=== PATIENT | female | born 1990 | race Caucasian/White ===

== ENCOUNTER 2016-04-17 16:01 | Emergency (ER) | payer OTHER ==
[~2016-04-17] VITALS: Ht 152.4 cm; Wt 63.2 kg
[~2016-04-17 16:01] MED LIST: ENDOCET 5-3251 EACH PO; FLINTSTONES M100 MCG PO; IBUPROFEN800 MG PO; MOTRIN800 MG PO; NOHOMEMEDS; PRENATAL TABLE1 EAC3 PO; SUBUTEX PO
[2016-04-17 17:29] LABS: EOSINOPHIL (%) 0.6 % (0-5); HEMATOCRIT 35.6 % (36.0-46.0); IMMATURE GRANULOCYTE (%) 0.2 % (0.0-0.7); IMMATURE GRANULOCYTE COUNT 0.1 K/uL; LYMPHOCYTE COUNT 1.5 K/uL (1.0-2.8); MCH 30.2 PG (29.0-34.0); MCHC 34.6 G/DL (30.0-36.0); MCV 87.5 FL (83-99); MEAN PLAT.VOLUME 9.7 uM^3 (9.5-12.4); MONOCYTE (%) 12.9 % (3-12); MONOCYTE COUNT 0.8 K/uL (0-0.8); NEUTROPHIL (%) 61.5 % (45-76); NEUTROPHIL COUNT 3.8 K/uL (1.8-6.4); PLATELET COUNT 364 K/uL (156-360); RBC DIS.WIDTH-CV 11.7 % (11.8-14.6); RBC DIS.WIDTH-SD 36.4 % (39-53); RED BLOOD COUNT 4.07 M/uL (3.80-5.20); WHITE BLOOD COUNT 6.2 K/uL (4.1-10.2)
[2016-04-17 17:33] LABS: POTASSIUM ND MEQ/L (3.7-5.4)
[2016-04-17 17:39] LABS: CHLORIDE 102 mEq/L (99-109); SODIUM 136 mEq/L (136-147)
[2016-04-17 17:41] LABS: GLUCOSE 99 mg/dL (70-99)
[2016-04-17 17:42] LABS: ANION GAP 10 MEQ/L (2-14)
[2016-04-17 17:43] LABS: TOTAL BILIRUBIN 0.3 mg/dL (0.0-1.0)
[2016-04-17 17:44] LABS: ALKALINE PHOSPHATASE 43 IU/L (3-129)
[2016-04-17 17:45] LABS: GFR ESTIMATE (CALCULATED) > 59 mL/min/
[2016-04-17 17:46] LABS: UREA NITROGEN (BUN) 9 mg/dL (9-23)
[2016-04-17 17:48] LABS: LIPASE 7 U/L (1.0-51.0)
[2016-04-17 17:54] LABS: QUANTITATIVE HCG < 4.0 MIU/ML
[2016-04-17 18:04] LABS: POTASSIUM 3.9 mEq/L (3.7-5.4)
[2016-04-17 18:05] LABS: ADD MIUA? NO; BILIRUBIN NEGATIVE; BLOOD NEGATIVE; COLOR YELLOW ((YELLOW)); GLUCOSE (STRIP) NEGATIVE; KETONES NEGATIVE; LEUKOCYTES NEGATIVE; NITRITE NEGATIVE; PROTEIN (STRIP) NEGATIVE; SPECIFIC GRAVITY 1.013 (1.000-1.030)
[2016-04-17] MEDS ORDERED: FIORICET,ESG1 TABLET PO (18:36)
[2016-04-17] MEDS ORDERED: ZOFRAN ODT8 MG PO (18:36)
[2016-04-17 19:02] VITALS: BP 115/58
== END 2016-04-17 19:03 | disposition home or self-care (01) ==
LOC: EME 16:01
PROVIDERS: Physician Assistant
DX: R51 Headache (principal); R10.9 Unspecified abdominal pain; R07.89 Other chest pain; F17.200 Nicotine dependence, unspecified, uncomplicated
CPT/HCPCS: 71020; 80053; 81003; 83690; 84702; 84999; 85025; 93005; 99281; 99285; J0780; J1885; J7030

== ENCOUNTER 2016-04-20 17:50 | Emergency (ER) | payer OTHER ==
[~2016-04-20] VITALS: Ht 152.4 cm; Wt 65.1 kg
[~2016-04-20 17:50] MED LIST changes: +FIORICET,ESG1 TABLET PO; +ZOFRAN ODT8 MG PO
[2016-04-20] MEDS ORDERED: TYLENOL WITH C1 EACH PO (20:02)
[2016-04-20 20:17] VITALS: BP 118/72
== END 2016-04-20 20:18 | disposition home or self-care (01) ==
LOC: EXP 17:50 → EME 17:50 → EXP 20:18
DX: R51 Headache (principal); H53.8 Other visual disturbances; R11.2 Nausea with vomiting, unspecified; F17.200 Nicotine dependence, unspecified, uncomplicated
CPT/HCPCS: 99281; 99285; J1200; J1885; J2765; J7030

== ENCOUNTER 2016-04-27 20:57 | Emergency (ER) | payer OTHER ==
[~2016-04-27] VITALS: Ht 152.4 cm; Wt 62.6 kg
[~2016-04-27 20:57] MED LIST changes: +TYLENOL WITH C1 EACH PO
[2016-04-27 23:23] VITALS: BP 115/76
== END 2016-04-27 23:24 | disposition home or self-care (01) ==
LOC: EME 20:57 → EXP 20:57
DX: Z71.1 Person with feared health complaint in whom no diagnosis is made (principal)
CPT/HCPCS: 99281; 99283

== ENCOUNTER 2016-05-01 16:09 | Emergency (ER) | payer OTHER ==
[~2016-05-01] VITALS: Ht 152.4 cm; Wt 63.5 kg
[2016-05-01 17:18] LABS: HEMATOCRIT 37.6 % (36.0-46.0); MCH 28.8 PG (29.0-34.0); MCHC 33.5 G/DL (30.0-36.0); PLATELET COUNT 345 K/uL (156-360); RBC DIS.WIDTH-CV 11.9 % (11.8-14.6); RBC DIS.WIDTH-SD 36.3 % (39-53); RED BLOOD COUNT 4.37 M/uL (3.80-5.20); WHITE BLOOD COUNT 6.1 K/uL (4.1-10.2)
[2016-05-01 17:30] LABS: CHLORIDE 98 mEq/L (99-109); POTASSIUM 3.9 mEq/L (3.7-5.4); SODIUM 131 mEq/L (136-147)
[2016-05-01 17:32] LABS: GLUCOSE 102 mg/dL (70-99)
[2016-05-01 17:33] LABS: ANION GAP 7 MEQ/L (2-14)
[2016-05-01 17:34] LABS: TOTAL BILIRUBIN 0.5 mg/dL (0.0-1.0)
[2016-05-01 17:35] LABS: ALKALINE PHOSPHATASE 49 IU/L (3-129)
[2016-05-01 17:36] LABS: GFR ESTIMATE (CALCULATED) > 59 mL/min/
[2016-05-01 17:37] LABS: UREA NITROGEN (BUN) 5 mg/dL (9-23)
[2016-05-01 17:44] LABS: ADD MIUA? YES; BILIRUBIN NEGATIVE; BLOOD NEGATIVE; COLOR YELLOW ((YELLOW)); GLUCOSE (STRIP) NEGATIVE; KETONES NEGATIVE; LEUKOCYTES NEGATIVE; NITRITE NEGATIVE; PH, URINE 6.5 (5-8); PROTEIN (STRIP) NEGATIVE; SPECIFIC GRAVITY 1.005 (1.000-1.030); UROBILINOGEN 0.2 MG/DL (0.2-1.0)
[2016-05-01 17:52] LABS: QUANTITATIVE HCG < 4.0 MIU/ML
[2016-05-01 18:00] LABS: BACTERIA NONE SEEN; CASTS NONE SEEN /LPF; CRYSTALS NONE SEEN; EPITHELIAL CELLS 1+; MUCUS NONE SEEN; PATHOLOGICAL CAST NONE SEEN; RED BLOOD CELLS 0-5 /HPF (0-5); SMALL ROUND CELL NONE SEEN; UCUL ADDED? NO; WHITE BLOOD CELLS 0-5 /HPF (0-5); YEAST-LIKE CELL NONE SEEN
[2016-05-01] MEDS ORDERED: BENTYL20 MG PO (19:19)
[2016-05-01] MEDS ORDERED: ZOFRAN ODT4 MG PO (19:19)
[2016-05-01 19:39] VITALS: BP 111/69
== END 2016-05-01 19:43 | disposition home or self-care (01) ==
LOC: EME 16:09
DX: R10.9 Unspecified abdominal pain (principal); F17.200 Nicotine dependence, unspecified, uncomplicated
CPT/HCPCS: 80053; 81003; 84702; 85027; 99281; 99284

== ENCOUNTER 2016-05-22 19:14 | Emergency (ER) | payer OTHER ==
[~2016-05-22] VITALS: Ht 152.4 cm; Wt 61.5 kg
[~2016-05-22 19:14] MED LIST changes: +BENTYL20 MG PO; +ZOFRAN ODT4 MG PO
[2016-05-22] MEDS ORDERED: ULTRAM50 MG PO (21:25)
[2016-05-22] MEDS ORDERED: MOBIC15 MG PO (21:25)
[2016-05-22 22:52] VITALS: BP 116/70
== END 2016-05-22 22:52 | disposition home or self-care (01) ==
LOC: EXP 19:14 → EME 19:14 → EXP 22:52
DX: M25.561 Pain in right knee (principal); M25.562 Pain in left knee; F17.200 Nicotine dependence, unspecified, uncomplicated
CPT/HCPCS: 73564; 99281; 99284

== ENCOUNTER 2017-06-12 09:25 | Emergency (ER) | payer OTHER ==
[~2017-06-12] VITALS: Ht 162.6 cm; Wt 64.5 kg
[~2017-06-12 09:25] MED LIST changes: +MOBIC15 MG PO; +ULTRAM50 MG PO
[2017-06-12 10:29] LABS: BASOPHIL (%) 0.4 % (0-1); EOSINOPHIL (%) 0.8 % (0-5); EOSINOPHIL COUNT 0.1 K/uL (0-0.3); HEMATOCRIT 34.8 % (36.0-46.0); HEMOGLOBIN 12.4 G/DL (11.9-15.5); IMMATURE GRANULOCYTE (%) 0.2 % (0.0-0.7); LYMPHOCYTE (%) 15.4 % (15-42); LYMPHOCYTE COUNT 1.3 K/uL (1.0-2.8); MCHC 35.6 G/DL (30.0-36.0); MCV 84.1 FL (83-99); MONOCYTE (%) 13.2 % (3-12); MONOCYTE COUNT 1.1 K/uL (0-0.8); NEUTROPHIL COUNT 5.8 K/uL (1.8-6.4); PLATELET COUNT 341 K/uL (156-360); RBC DIS.WIDTH-CV 12.5 % (11.8-14.6); RBC DIS.WIDTH-SD 37.7 % (39-53); RED BLOOD COUNT 4.14 M/uL (3.80-5.20); WHITE BLOOD COUNT 8.3 K/uL (4.1-10.2)
[2017-06-12 10:43] LABS: CHLORIDE 93 mEq/L (99-109); POTASSIUM 2.7 mEq/L (3.7-5.4); SODIUM 134 mEq/L (136-147)
[2017-06-12 10:44] LABS: GLUCOSE 99 mg/dL (70-99)
[2017-06-12 10:48] LABS: CREATININE 0.7 mg/dL (0.6-1.3); GFR ESTIMATE (CALCULATED) > 59 mL/min/
[2017-06-12 10:49] LABS: UREA NITROGEN (BUN) 8 mg/dL (9-23)
[2017-06-12] MEDS ORDERED: MOTRIN800 MG PO (12:08)
[2017-06-12] MEDS ORDERED: CLEOCIN300 MG PO (12:11)
[2017-06-12] MEDS ORDERED: K-DUR20 MEQ PO (12:11)
[2017-06-12 12:21] VITALS: BP 114/70
== END 2017-06-12 12:21 | disposition home or self-care (01) ==
LOC: EME 09:25
PROVIDERS: Emergency Medicine
DX: S90.31XA Contusion of right foot, initial encounter (principal); E87.6 Hypokalemia; X58.XXXA Exposure to other specified factors, initial encounter; F17.200 Nicotine dependence, unspecified, uncomplicated; F11.11 Opioid abuse, in remission
CPT/HCPCS: 73630; 80048; 85025; 99281; 99284

== ENCOUNTER 2017-10-21 20:27 | Emergency (ER) | payer OTHER ==
[~2017-10-21] VITALS: Ht 152.4 cm; Wt 59.0 kg
[~2017-10-21 20:27] MED LIST changes: +CLEOCIN300 MG PO; +K-DUR20 MEQ PO
[2017-10-21 20:31] VITALS: BP 135/86
[2017-10-21] MEDS ORDERED: CLEOCIN300 MG PO (21:28)
== END 2017-10-21 21:36 | disposition left against medical advice (07) ==
LOC: EME 20:27
DX: L03.115 Cellulitis of right lower limb (principal)
CPT/HCPCS: 80048; 84702; 85025; 87040; 99281; 99283